=== PATIENT | female | born 1990 | race Hispanic/Latino ===

== ENCOUNTER 2019-06-28 17:07 | Emergency (ER) | payer SELFPAY ==
[~2019-06-28] VITALS: Ht 170.2 cm; Wt 158.8 kg
[2019-06-28] MEDS ORDERED: ONDANSETRON HCL INJ 2MG/ML 2ML 2 MG/ML VIAL IV STA (17:14)
[2019-06-28] MEDS ORDERED: SODIUM CHLORIDE 0.9% 1000ML 1,000 ML IV STA (17:14)
[2019-06-28] MEDS ORDERED: MORPHINE SULFATE 2 MG/ML SYR 1ML IV STA (17:22)
--- NOTE | 2019-06-28 17:44 | NUR ---
EDUCATED PATIENT ON NEED FOR URINE SAMPLE, PATIENT STATES THAT SHE IS UNABLE TO PROVIDE AT SAMPLE AT THIS TIME. GAVE PATIENT CALL GUZMAN AND TOLD HER TO NOTIFY STAFF VIA CALL GUZMAN WHEN SHE WAS ABLE TO PROVIDE SAMPLE. PATIENT VERBALIZED UNDERSTANDING.
[2019-06-28 17:47] LABS: BASOPHILS # (AUTO) 0.1 (0.0-0.1); BASOPHILS % 0.3 % (0.0-1.0); EOSINOPHILS # (AUTO) 0.1 (0.0-0.4); EOSINOPHILS % 0.9 % (0.0-6.0); HEMATOCRIT 43.4 % (34.2-44.1); HEMOGLOBIN 14.2 g/dL (12.0-16.0); LYMPHOCYTES # (AUTO) 2.8 (1.0-3.2); LYMPHOCYTES % 17.4 % (18.0-39.1); MEAN CORPUSCULAR HEMOGLOBIN 29.4 pg (28-32); MEAN CORPUSCULAR HGB CONC 32.7 g/dL (31-35); MEAN CORPUSCULAR VOLUME 89.9 fL (81-99); MONOCYTES # (AUTO) 0.6 (0.2-0.8); MONOCYTES % 3.6 % (4.4-11.3); NEUTROPHILS # (AUTO) 12.4 (2.1-6.9); NEUTROPHILS % 77.4 % (38.7-80.0); PLATELET COUNT 417 x10e3/uL (140-360); RED BLOOD COUNT 4.83 x10e6/uL (3.6-5.1); RED CELL DISTRIBUTION WIDTH 14.6 % (11.7-14.4)
[2019-06-28 18:06] LABS: ALANINE AMINOTRANSFERASE 22 IU/L (0-55); ALBUMIN 3.8 g/dL (3.5-5.0); ALBUMIN/GLOBULIN RATIO 0.9 (0.8-2.0); ALKALINE PHOSPHATASE 60 IU/L (40-150); ANION GAP 11.1 mmol/L (8-16); BLOOD UREA NITROGEN 11 mg/dL (7-26); BUN/CREATININE RATIO 14 (6-25); CARBON DIOXIDE 27 mmol/L (22-29); CHLORIDE 105 mmol/L (98-107); CREATININE, SERUM 0.77 mg/dL (0.57-1.11); EST GLOMERULAR FILTRATION RATE > 60 ML/MIN (60-); GLUCOSE 112 mg/dL (74-118); LIPASE 22 U/L (8-78); POTASSIUM 4.1 mmol/L (3.5-5.1); SODIUM 139 mmol/L (136-145)
--- NOTE | 2019-06-28 18:29 | Diagnostic Imaging Report ---
EXAM: Right Upper Quadrant Ultrasound INDICATION: ^rt upper quad pain COMPARISON: None. TECHNIQUE: Transverse and longitudinal images of the right upper abdomen were obtained. FINDINGS: Limited by body habitus. Liver: Size: 17.8 cm in the right midclavicular line, enlarged Appearance: Increased echogenicity, smooth contour Mass: No focal masses Gallbladder: Stones/Sludge: Sludge present. Wall: 0.3 cm Appearance: No pericholecystic fluid or hydrops. Sonographic Piña's Sign: Negative Bile Ducts: Intrahepatic Ducts: No dilatation Extrahepatic Ducts: Common bile duct measures 0.6 cm, no dilatation Pancreas: Not well-visualized. Right Kidney: Size: 10.8 cm Echogenicity: Normal Parenchymal thickness: Normal Collecting system: No hydronephrosis Stones: None Cyst/Mass: None Vessels: Aorta: Not well visualized. Inferior Vena Cava: Visualized portions are normal Main Portal Vein: 0.7 cm, normal size with hepatopetal flow. Free Fluid: No ascites or pleural effusion IMPRESSION: Limited study due to body habitus. Enlarged steatotic liver. Gallbladder sludge. No definite evidence of cholelithiasis or cholecystitis. Signed by: Dr. Frandy Marvin MD on 06/28/2019 6:25 PM
[2019-06-28] MEDS ORDERED: PROMETHAZINE 25MG/ NS 50ML (IV) IV ONE (18:45)
--- NOTE | 2019-06-28 19:04 | NUR ---
report given to Fidencio CARRINGTON
[2019-06-28 19:14] LABS: CLARITY,URINE SL CLOUDY (CLEAR); COLOR,URINE YELLOW (YELLOW)
[2019-06-28 19:15] LABS: BILIRUBIN,URINE NEGATIVE (NEGATIVE); KETONES,URINE 1+ (NEGATIVE); LEUKOCYTE ESTERASE ,URINE NEGATIVE (NEGATIVE); NITRITE,URINE NEGATIVE (NEGATIVE); PROTEIN,URINE DIPSTICK 1+ (NEGATIVE); URINE UROBILINOGEN 0.2 mg/dL (0.2 - 1)
[2019-06-28 19:23] LABS: BACTERIA,URINE MODERATE /HPF
[2019-06-28 19:24] LABS: AMORPHOUS SEDIMENT,URINE MANY (FEW)
[2019-06-28] MEDS ORDERED: IOPAMIDOL 370 MG/ML 200 ML INFUS..BTL INJ ONE (20:27)
[2019-06-28] MEDS ORDERED: SODIUM CHLORIDE 0.9% 50ML 50 ML ONE (20:27)
--- NOTE | 2019-06-28 22:02 | Diagnostic Imaging Report ---
EXAM: CT Abdomen and Pelvis with contrast INDICATION: Upper abdominal pain, possible food poisoning. COMPARISON: None. TECHNIQUE: Abdomen and pelvis were scanned utilizing a multidetector helical scanner from the lung base to the pubic symphysis after administration of IV contrast. Coronal and sagittal reformations were obtained. Routine protocol was performed. Scan was performed during portal venous phase. IV CONTRAST: 100 cc of Isovue-370 ORAL CONTRAST: Water COMPLICATIONS: None RADIATION DOSE: Total DLP: 1476 mGy*cm Estimated effective dose: (DLP x 0.015 x size factor) mSv CTDIvol has been reviewed. It is below the limits set by the Radiation Protocol Committee (RPC). FINDINGS: LINES and TUBES: None. LOWER THORAX: Unremarkable HEPATOBILIARY: Diffuse hepatic steatosis. Hepatomegaly. No evidence of focal lesion. No biliary ductal dilation. GALLBLADDER: Cholelithiasis without evidence of cholecystitis. SPLEEN: No splenomegaly. Calcified splenic granuloma. PANCREAS: No focal masses or ductal dilatation. ADRENALS: Indeterminant 1.6 cm right adrenal nodule. KIDNEYS/URETERS: Kidneys enhance symmetrically. No evidence of hydronephrosis, solid mass, or stone. GI TRACT: No evidence of wall thickening or distension. Normal appendix (coronal series 301, image 69). PELVIC ORGANS/BLADDER: Decompressed bladder. LYMPH NODES: No lymphadenopathy. VESSELS: Unremarkable. PERITONEUM / RETROPERITONEUM: No free air or fluid. BONES AND SOFT TISSUES: Unremarkable. CONCLUSION: Hepatic steatosis and hepatomegaly. Cholelithiasis without evidence of cholecystitis. Indeterminate 1.6 cm right adrenal nodule, for which a follow-up adrenal protocol CT or MRI is recommended. Signed by: Dr. Reji Mcnamara MD on 06/28/2019 9:59 PM
[2019-06-28 22:12] VITALS: BP 144/76
== END 2019-06-28 22:23 | disposition home or self-care (01) ==
LOC: ER 17:07
DX: R10.811 Right upper quadrant abdominal tenderness (principal); R11.2 Nausea with vomiting, unspecified; K52.29 Other allergic and dietetic gastroenteritis and colitis
CPT/HCPCS: 36415; 74177; 76705; 80053; 81001; 83690; 84702; 85025; 99284; J2270; J2405; J2550; J7030; Q9967